=== PATIENT | female | born 1965 | race Caucasian/White ===

== ENCOUNTER 2016-09-04 12:01 | Emergency (ER) | payer MEDICAID, OTHER ==
[~2016-09-04] VITALS: Wt 80.0 kg
[2016-09-04] MEDS ORDERED: ACETAMINOPHEN 325 MG TAB PO ONE (14:00)
--- NOTE | 2016-09-04 14:38 | RADRPT ---
PROCEDURE: 1. X-ray right hand. 2. X-ray right wrist. CLINICAL INDICATION: Fall with right hand and wrist pain. TECHNIQUE: 1. 3 views of the right hand. 2. 3 views of the right wrist. COMPARISON: None available. FINDINGS: There is a comminuted and impacted fracture of the distal radial metadiaphysis with mild dorsal angu lation of the distal fracture fragment. There is a mildly displaced ulnar styloid fracture. There is edema within the surrounding soft tissues. No additional acute fracture or dislocation is identi fied. The osseous mineralization is within normal limits. IMPRESSION: 1. Comminuted impacted fracture of the distal radial metadiaphysis with mild dorsal angulation of t he distal fracture . 2. Mildly displaced ulnar styloid fracture. RPTAT: AA .Oleg Mcpherson MD, Date Time Electronically viewed and signed by .Oleg Mcpherson MD, MD on 09/04/2016 14:37 .P/
--- NOTE | 2016-09-04 14:38 | RADRPT ---
PROCEDURE: 1. X-ray right hand. 2. X-ray right wrist. CLINICAL INDICATION: Fall with right hand and wrist pain. TECHNIQUE: 1. 3 views of the right hand. 2. 3 views of the right wrist. COMPARISON: None available. FINDINGS: There is a comminuted and impacted fracture of the distal radial metadiaphysis with mild dorsal angu lation of the distal fracture fragment. There is a mildly displaced ulnar styloid fracture. There is edema within the surrounding soft tissues. No additional acute fracture or dislocation is identi fied. The osseous mineralization is within normal limits. IMPRESSION: 1. Comminuted impacted fracture of the distal radial metadiaphysis with mild dorsal angulation of t he distal fracture . 2. Mildly displaced ulnar styloid fracture. RPTAT: AA .Oleg Mcpherson MD, Date Time Electronically viewed and signed by .Oleg Mcpherson MD, MD on 09/04/2016 14:38 .P/
[2016-09-04] MEDS ORDERED: IBUP400T22 PO (15:19)
[2016-09-04 15:46] VITALS: BP 135/77; PULSE 72; RESP 18; TEMP 98.6
--- NOTE | 2016-09-04 18:14 | ERD ---
ER Documentation Chief Complaint Date/Time DATE: 09/04/16 TIME: 18:11 Chief Complaint right wrist pain from a fall while walking no deformity HPI Due to-year-old female with no significant past medical history presents the ED complaining of falling on her right arm at a liquor store. Denies any alcohol use. States that she is left-handed. Denies any head injuries. Denies taking blood thinners. Describes the right wrist pain as sharp and rates it a 5 out of 10. That this was a mechanical fall. Denies any dizziness, weakness, headache, chest pain, shortness of breath, loss of sensation, loss of range of motion, numbness or tingling. ROS All systems reviewed and are negative except as per history of present illness. Medications Home Meds Active Scripts Ibuprofen* (Motrin*) 400 Mg Tab, 400 MG PO Q6, #30 TAB Prov:SUNDAR ROSE PA-C 09/04/16 Allergies Allergies: Coded Allergies: No Known Drug Allergy (Unverified Allergy, Unknown, 09/28/06) PMhx/Soc Medical and Surgical Hx: pt denies Medical Hx, pt denies Surgical Hx Hx Alcohol Use: No Hx Substance Use: No Hx Tobacco Use: No Smoking Status: Never smoker Physical Exam Vitals Vital Signs Date Time Temp Pulse Resp B/P Pulse Ox O2 Delivery O2 Flow Rate FiO2 09/04/16 15:46 98.6 72 18 135/77 98 Room Air 09/04/16 12:03 98.6 78 20 139/77 98 Physical Exam Const: [id number], well-nourished. In no acute distress. Head: Atraumatic, normocephalic Eyes: Normal Conjunctiva without injection ENT: Normal external ear, nose and mouth. Neck: Full range of motion. No meningismus. Resp: Clear to auscultation bilaterally. No wheezing, rhonchi, rales, or crackles. No accessory muscle use. No retractions. Cardio: Regular rate and rhythm, no murmurs Skin: No petechiae or rashes Back: No midline tenderness. No CVA tenderness. Ext: No cyanosis, or edema. Limited range of motion of the right wrist due to pain. Patient is unable to flex or extend right wrist. Full range of motion of the DIP, PIP, MCP joints of the bilateral hands. No snuffbox tenderness noted. Cap refill less than 2 seconds. Distal pulses intact bilaterally. Neur: Awake and alert. Normal gait and coordination. Muscle strength 5/5. Sensation intact bilaterally. Psych: Normal Mood and Affect Results 24 hrs Current Medications Medications (Trade) Dose Ordered Sig/Mary Route PRN Reason Start Time Stop Time Status Last Admin Dose Admin Acetaminophen (Tylenol Tab) 650 mg ONCE ONCE PO 09/04/16 14:00 09/04/16 14:01 DC 09/04/16 13:53 Procedures/MDM This is a 51-year-old female with no significant past medical history presents to the ED complaining of a right wrist injury after a mechanical fall. Patient is afebrile nontoxic appearing. Patient has normal vital signs. Right wrist and hand x-ray was ordered to further evaluate patient. PROCEDURE: 1. X-ray right hand. 2. X-ray right wrist. CLINICAL INDICATION: Fall with right hand and wrist pain. TECHNIQUE: 1. 3 views of the right hand. 2. 3 views of the right wrist. COMPARISON: None available. FINDINGS: There is a comminuted and impacted fracture of the distal radial metadiaphysis with mild dorsal angulation of the distal fracture fragment. There is a mildly displaced ulnar styloid fracture. There is edema within the surrounding soft tissues. No additional acute fracture or dislocation is identified. The osseous mineralization is within normal limits. IMPRESSION: 1. Comminuted impacted fracture of the distal radial metadiaphysis with mild dorsal angulation of the distal fracture . 2. Mildly displaced ulnar styloid fracture. PROCEDURE: 1. X-ray right hand. 2. X-ray right wrist. CLINICAL INDICATION: Fall with right hand and wrist pain. TECHNIQUE: 1. 3 views of the right hand. 2. 3 views of the right wrist. COMPARISON: None available. FINDINGS: There is a comminuted and impacted fracture of the distal radial metadiaphysis with mild dorsal angulation of the distal fracture fragment. There is a mildly displaced ulnar styloid fracture. There is edema within the surrounding soft tissues. No additional acute fracture or dislocation is identified. The osseous mineralization is within normal limits. IMPRESSION: 1. Comminuted impacted fracture of the distal radial metadiaphysis with mild dorsal angulation of the distal fracture . 2. Mildly displaced ulnar styloid fracture. Patient sustained a comminuted impacted fracture of the distal radial metaphysis with mild dorsal angulation. This case was discussed with my supervising physician, Dr. Howell. States that patient can be managed on outpatient basis with orthopedic physician. Patient is placed in a volar splint of the right wrist. Splint Assessment: Neurovascularly intact pre and post splint placement with good fit. Patient's extremity symptoms have stabilized while they have been evaluated in the department and are appropriate for outpatient follow up. No evidence of dislocations, compartment syndrome, neurologic injury, vascular injury, open joint, open fracture, tendon laceration, septic arthritis, osteomyelitis, DVT, foreign body, or other emergent conditions. Discharge medications: Ibuprofen Follow up with primary care physician in 1-2 days for a referral to orthopedic physician. Instructed patient to return to the ED sooner for any worsening symptoms. Patient's questions were answered. Patient understood and agreed with discharge plan. Patient discharged stable. Departure Diagnosis: Primary Impression: Wrist fracture, right Encounter type: initial encounter Fracture type: closed Qualified Code: S62.101A - Wrist fracture, right, closed, initial encounter Condition: Stable Patient Instructions: Fracture, Wrist [General] Referrals: [facility] YOU HAVE RECEIVED A MEDICAL SCREENING EXAM AND THE RESULTS INDICATE THAT YOU DO NOT HAVE A CONDITION THAT REQUIRES URGENT TREATMENT IN THE EMERGENCY DEPARTMENT. FURTHER EVALUATION AND TREATMENT OF YOUR CONDITION CAN WAIT UNTIL YOU ARE SEEN IN YOUR DOCTORS OFFICE WITHIN THE NEXT 1-2 DAYS. IT IS YOUR RESPONSIBILITY TO MAKE AN APPOINTMENT FOR FOLOW-UP CARE. IF YOU HAVE A PRIMARY DOCTOR --you should call your primary doctor and schedule an appointment IF YOU DO NOT HAVE A PRIMARY DOCTOR YOU CAN CALL OUR PHYSICIAN REFERRAL HOTLINE AT IF YOU CAN NOT AFFORD TO SEE A PHYSICIAN YOU CAN CHOSE FROM THE FOLLOWING [facility] [address] [facility] [address] [facility] [address] [facility] [address] [facility] [facility] [address] [facility] [address] [facility]. [facility]. [address] [facility] YOU HAVE RECEIVED A MEDICAL SCREENING EXAM AND THE RESULTS INDICATE THAT YOU DO NOT HAVE A CONDITION THAT REQUIRES URGENT TREATMENT IN THE EMERGENCY DEPARTMENT. FURTHER EVALUATION AND TREATMENT OF YOUR CONDITION CAN WAIT UNTIL YOU ARE SEEN IN YOUR DOCTORS OFFICE WITHIN THE NEXT 1-2 DAYS. IT IS YOUR RESPONSIBILITY TO MAKE AN APPOINTMENT FOR FOLOW-UP CARE. IF YOU HAVE A PRIMARY DOCTOR --you should call your primary doctor and schedule and appointment IF YOU DO NOT HAVE A PRIMARY DOCTOR YOU CAN CALL OUR PHYSICIAN REFERRAL HOTLINE AT . IF YOU CAN NOT AFFORD TO SEE A PHYSICIAN YOU CAN CHOSE FROM THE FOLLOWING [facility] INSTITUTIONS: [facility] [address] [place] [address] [facility] [address] [place] [address] [facility] [address] [place] [address] [facility] 7 a.m.- 11 p.m. Every Day of the Week NO APPOINTMENT OR AUTHORIZATION NEEDED [facility] Hours: Mon-Fri 9:00 AM - 5:00 PM Additional Instructions: FOLLOW UP WITH YOUR PRIMARY CARE PHYSICIAN TOMORROW.Return to this facility if you are not improving as expected. SUNDAR ROSE PA-C Sep 04, 2016 18:14
== END 2016-09-04 15:46 | disposition home or self-care (01) ==
LOC: FTE 12:01
DX: S62.101A Fracture of unspecified carpal bone, right wrist, initial encounter for closed fracture (principal); W18.39XA Other fall on same level, initial encounter; Y92.512 Supermarket, store or market as the place of occurrence of the external cause
CPT/HCPCS: 29125; 73110; 73130; Z7502; Z7610